=== PATIENT | female | born 1980 | race Caucasian/White ===

== ENCOUNTER 2016-11-04 19:06 | Emergency (ER) | payer MEDICAID ==
--- NOTE | 2016-11-04 19:25 | ER Document Report ---
ED General - General Stated Complaint: IVC WITH PAPERS Mode of Arrival: Ambulatory Information source: Patient Notes: 36-year-old female on Lamictal for bipolar disorder presents with complaints of depression over the past few days. Patient denies any suicidal homicidal ideations. Patient does note she has not been getting much sleep over the past few days TRAVEL OUTSIDE OF THE [place] IN LAST 30 DAYS: No - HPI Onset: Last week Onset/Duration: Persistent Quality of pain: No pain Severity: Mild Pain Level: Denies Associated symptoms: Other Exacerbated by: Denies Relieved by: Denies Similar symptoms previously: Yes Recently seen / treated by doctor: Yes - patient is seen at Dr. Otoole's office - Related Data Allergies/Adverse Reactions: aspirin [Aspirin] Allergy (Severe, Verified 08/11/13 20:06) Liver damage acetaminophen [From Tylenol] Allergy (Intermediate, Verified 08/11/13 20:06) Liver damage codeine [Codeine] Allergy (Intermediate, Verified 08/11/13 20:06) Rash, N&V fluoxetine HCl [From Prozac] Allergy (Verified 08/11/13 20:06) Past Medical History - Social History Smoking Status: Current Every Day Smoker Cigarette use (# per day): Yes Chew tobacco use (# tins/day): No Smoking Education Provided: No Family History: Reviewed & Not Pertinent - Past Medical History Cardiac Medical History: Reports: Hx Heart Murmur Pulmonary Medical History: Reports: Hx Asthma, Hx Bronchitis, Hx Pneumonia Neurological Medical History: Reports: Hx Migraine Endocrine Medical History: Reports: Hx Hypothyroidism Renal/ Medical History: Reports: Hx Kidney Stones GI Medical History: Musculoskeltal Medical History: Reports Hx Arthritis, Reports Hx Musculoskeletal Deformity, Reports Hx Musculoskeletal Trauma Psychiatric Medical History: Reports: Hx Anxiety, Hx Attention Deficit Hyperactivity Disorder, Hx Bipolar Disorder, Hx Depression Infectious Medical History: Past Surgical History: Reports: Hx Appendectomy, Hx Gynecologic Surgery - novasure ablation, Hx Hysterectomy, Hx Oral Surgery, Hx Tubal Ligation. Denies : Hx Pacemaker - Immunizations Immunizations up to date: Yes Hx Diphtheria, Pertussis, Tetanus Vaccination: Yes Review of Systems - Review of Systems Notes: REVIEW OF SYSTEMS: CONSTITUTIONAL : Denies fever, chills, or sweats. Denies recent illness. EENT: Denies eye, ear, throat, or mouth pain or symptoms. Denies nasal or sinus congestion or discharge. Denies throat, tongue, or mouth swelling or difficulty swallowing. CARDIOVASCULAR: Denies chest pain. Denies palpitations or racing or irregular heart beat. Denies ankle edema. RESPIRATORY: Denies cough, cold, or chest congestion. Denies shortness of breath, difficulty breathing, or wheezing. GASTROINTESTINAL: Denies abdominal pain or distention. Denies nausea, vomiting , or diarrhea. Denies blood in vomitus, stools, or per rectum. Denies black, tarry stools. Denies constipation. GENITOURINARY: Denies difficulty urinating, painful urination, burning, frequency, blood in urine, or discharge. FEMALE GENITOURINARY: Denies vaginal bleeding, heavy or abnormal periods, irregular periods. Denies vaginal discharge or odor. MUSCULOSKELETAL: Denies back or neck pain or stiffness. Denies joint pain or swelling. SKIN: Denies rash, lesions or sores. HEMATOLOGIC : Denies easy bruising or bleeding. LYMPHATIC: Denies swollen, enlarged glands. NEUROLOGICAL: Denies confusion or altered mental status. Denies passing out or loss of consciousness. Denies dizziness or lightheadedness. Denies headache. Denies weakness or paralysis or loss of use of either side. Denies problems with gait or speech. Denies sensory loss, numbness, or tingling. Denies seizures. PSYCHIATRIC: Admits to depression ALL OTHER SYSTEMS REVIEWED AND NEGATIVE. Dictation was performed using [employer] voice recognition software PHYSICAL EXAMINATION: GENERAL: Well-appearing, well-nourished and in no acute distress. HEAD: Atraumatic, normocephalic. EYES: Pupils equal round and reactive to light, extraocular movements intact, conjunctiva are normal. ENT: Nares patent, oropharynx clear without exudates. Moist mucous membranes. NECK: Normal range of motion, supple without lymphadenopathy LUNGS: Breath sounds clear to auscultation bilaterally and equal. No wheezes rales or rhonchi. HEART: Regular rate and rhythm without murmurs ABDOMEN: Soft, nontender, nondistended abdomen. No guarding, no rebound. No masses appreciated. Female : deferred Musculoskeletal: Normal range of motion, no pitting or edema. No cyanosis. NEUROLOGICAL: Cranial nerves grossly intact. Normal speech, normal gait. Normal sensory, motor exams PSYCH: Normal mood, normal affect. SKIN: Warm, Dry, normal turgor, no rashes or lesions noted. Course - Re-evaluation Re-evalutation: 11/04/16 20:07 Medically patient appears stable, lab work is pending. Otherwise she will require mental health evaluation Discharge - Discharge Clinical Impression: Depression Qualifiers: Depression Type: unspecified Qualified Code(s): F32.9 - Major depressive disorder, single episode, unspecified Bipolar affective disorder Qualifiers: Active/Remission status: currently active Current bipolar episode type: depressed Current episode severity: mild Qualified Code(s): F31.31 - Bipolar disorder, current episode depressed, mild Condition: Stable Disposition: PSYCH HOSP/UNIT
[2016-11-04 20:59] LABS: ABSOLUTE BASOPHILS # (AUTO) 0.1 10^3/uL (0.0-0.2); ABSOLUTE EOSINOPHILS # (AUTO) 0.3 10^3/uL (0.0-0.6); ABSOLUTE LYMPHOCYTES (AUTO) 2.5 10^3/uL (0.5-4.7); ABSOLUTE MONOCYTES (AUTO) 0.5 10^3/uL (0.1-1.4); ABSOLUTE NEUT (AUTO) 5.7 10^3/uL (1.7-8.2); BASOPHILS % (AUTO) 0.7 % (0-2); EOSINOPHILS % (AUTO) 3.2 % (0-6); HEMATOCRIT 38.8 % (36.0-47.0); HEMOGLOBIN 13.3 g/dL (12.0-15.5); HGB HCT DIFFERENCE 1.1; LYMPHOCYTES % (AUTO) 28.1 % (13-45); MEAN CORPUSCULAR HEMOGLOBIN 29.1 pg (27.0-33.4); MEAN CORPUSCULAR HGB CONC 34.2 g/dL (32.0-36.0); MEAN CORPUSCULAR VOLUME 85 fl (80-97); RED BLOOD COUNT 4.56 10^6/uL (3.72-5.28); RED CELL DISTRIBUTION WIDTH 13.6 % (11.5-14.0)
[2016-11-04 21:19] LABS: ALANINE AMINOTRANSFERASE 36 U/L (9-52); ALBUMIN 4.2 g/dL (3.5-5.0); ALKALINE PHOSPHATASE 75 U/L (38-126); ANION GAP 14 (5-19); ASPARTATE AMINO TRANSFERASE 24 U/L (14-36); BILIRUBIN,DIRECT 0.1 mg/dL (0.0-0.4); BILIRUBIN,TOTAL 0.6 mg/dL (0.2-1.3); BLOOD UREA NITROGEN 10 mg/dL (7-20); CALCIUM 9.8 mg/dL (8.4-10.2); CARBON DIOXIDE 25 mmol/L (22-30); CHLORIDE 106 mmol/L (98-107); CREATININE RESULT 0.84 mg/dL (0.52-1.25); GLUCOSE 79 mg/dL (75-110); POTASSIUM 4.2 mmol/L (3.6-5.0); SODIUM 145.3 mmol/L (137-145); TOTAL PROTEIN 6.8 g/dL (6.3-8.2)
[2016-11-04 21:21] LABS: ALCOHOL < 10 mg/dL (NONE DETECTED)
[2016-11-05 02:49] LABS: APPEARANCE,URINE CLOUDY; BILIRUBIN,URINE NEGATIVE (NEGATIVE); GLUCOSE, URINE NEGATIVE (NEGATIVE); KETONES,URINE NEGATIVE (NEGATIVE); LEUKOCYTE ESTERASE,URINE LARGE (NEGATIVE); NITRITE,URINE NEGATIVE (NEGATIVE); PROTEIN,URINE NEGATIVE (NEGATIVE); URINE SPECIFIC GRAVITY 1.009; UROBILINOGEN,URINE NEGATIVE mg/dL (<2.0)
[2016-11-05] MEDS ORDERED: LORAZEPAM 1 MG TABLET PO ONE (03:03)
[2016-11-05 03:35] LABS: URINE BARBITURATES SCREEN NEGATIVE; URINE METHADONE SCREEN NEGATIVE; URINE OPIATES LOW NEGATIVE; URINE PHENCYCLIDINE SCREEN NEGATIVE
--- NOTE | 2016-11-05 08:13 | EKG REPORT ---
SEVERITY:- NORMAL ECG - SINUS RHYTHM : Confirmed by: Jason Nguyen MD 05-Nov-2016 08:12:26
[2016-11-05 13:05] VITALS: BP 107/72
--- NOTE | 2016-11-05 13:13 | ER Document Report ---
Doctor's Note Notes: 11/05/16 13:13 Patient seen and evaluated at bedside, no complaints at present time, it professional's department in the emergency room to transport patient to tertiary care facility , patient in agreement with this and stable for transport
== END 2016-11-05 13:15 ==
LOC: ER 19:06
DX: F31.31 Bipolar disorder, current episode depressed, mild (principal); Z79.899 Other long term (current) drug therapy; J45.909 Unspecified asthma, uncomplicated; F17.210 Nicotine dependence, cigarettes, uncomplicated; Z88.6 Allergy status to analgesic agent; Z88.5 Allergy status to narcotic agent; Z88.8 Allergy status to other drugs, medicaments and biological substances
CPT/HCPCS: 36415; 80053; 80307; 81001; 82962; 84703; 85025; 93005; 93010; 99284

== ENCOUNTER → 2016-12-17 | Outpatient (CLI) | payer MEDICAID ==
--- NOTE | 2016-12-17 12:16 | RADIOLOGY REPORT (SQ) ---
EXAM DESCRIPTION: CHEST PA/LATERAL COMPLETED DATE/TIME: 12/17/2016 11:48 am REASON FOR STUDY: SHORTNESS OF BREATH COMPARISON: 04/28/2011 EXAM PARAMETERS: NUMBER OF VIEWS: two views TECHNIQUE: Digital Frontal and Lateral radiographic views of the chest acquired. RADIATION DOSE: NA LIMITATIONS: none FINDINGS: LUNGS AND PLEURA: No opacities, masses or pneumothorax. No pleural effusion. MEDIASTINUM AND HILAR STRUCTURES: No masses or contour abnormalities. HEART AND VASCULAR STRUCTURES: Heart normal size. No evidence for failure. BONES: No acute findings. HARDWARE: None in the chest. OTHER: No other significant finding. IMPRESSION: NO SIGNIFICANT RADIOGRAPHIC FINDING IN THE CHEST. TECHNICAL DOCUMENTATION: JOB ID: [id number] [employer]- All Rights Reserved
== END ==
LOC: OD 11:36
PROVIDERS: ATTEND Physician Assistant Medical
DX: R06.02 Shortness of breath (principal)
CPT/HCPCS: 71020

== ENCOUNTER 2016-12-19 19:56 | Emergency (ER) | payer MEDICAID ==
[2016-12-19 20:10] VITALS: BP 117/77
== END 2016-12-19 22:55 | disposition left against medical advice (07) ==
LOC: ER 19:56
DX: Z53.21 Procedure and treatment not carried out due to patient leaving prior to being seen by health care provider (principal)

== ENCOUNTER 2017-03-23 17:30 | Emergency (ER) | payer MEDICAID ==
--- NOTE | 2017-03-23 18:31 | ER Document Report ---
ED General - General Chief Complaint: Abdominal Pain Stated Complaint: VOMITING Time Seen by Provider: 03/23/17 18:13 Mode of Arrival: Ambulatory Information source: Patient Notes: This is a 36-year-old female with a history of bipolar affective disorder, obstructive sleep apnea, diabetes who presents to the emergency room with nausea , vomiting and constipation. Patient states that she has not had a bowel movement in 4 days. Patient attributes her constipation to a new medicine for diabetes (which she receivesbydureon) 2 mg weekly. Patient states that she had tried [id number] medications (mag citrate, Dulcolax) without any relief. Patient is concerned about pancreatitis because of the medications. TRAVEL OUTSIDE OF THE [place] IN LAST 30 DAYS: No - HPI Onset: Last week Onset/Duration: Gradual Quality of pain: Dull Severity: Mild Associated symptoms: denies: Chills, Fever, Shortness of breath Exacerbated by: Denies Relieved by: Denies Similar symptoms previously: Yes Recently seen / treated by doctor: Yes - Related Data Allergies/Adverse Reactions: aspirin [Aspirin] Allergy (Severe, Verified 08/11/13 20:06) Liver damage acetaminophen [From Tylenol] Allergy (Intermediate, Verified 08/11/13 20:06) Liver damage codeine [Codeine] Allergy (Intermediate, Verified 08/11/13 20:06) Rash, N&V fluoxetine HCl [From Prozac] Allergy (Verified 08/11/13 20:06) Past Medical History - General Information source: Patient - Social History Smoking Status: Never Smoker Cigarette use (# per day): No Chew tobacco use (# tins/day): No Frequency of alcohol use: None Drug Abuse: None Lives with: Family Family History: Reviewed & Not Pertinent Patient has suicidal ideation: No Patient has homicidal ideation: No - Past Medical History Cardiac Medical History: Reports: Hx Heart Murmur Pulmonary Medical History: Reports: Hx Asthma, Hx Bronchitis, Hx Pneumonia Neurological Medical History: Reports: Hx Migraine Endocrine Medical History: Reports: Hx Diabetes Mellitus Type 2, Hx Hypothyroidism Renal/ Medical History: Reports: Hx Kidney Stones. Denies: Hx Peritoneal Dialysis GI Medical History: Musculoskeltal Medical History: Reports Hx Arthritis, Reports Hx Musculoskeletal Deformity, Reports Hx Musculoskeletal Trauma Psychiatric Medical History: Reports: Hx Anxiety, Hx Attention Deficit Hyperactivity Disorder, Hx Bipolar Disorder, Hx Depression Infectious Medical History: Past Surgical History: Reports: Hx Appendectomy, Hx Gynecologic Surgery - novasure ablation, Hx Hysterectomy, Hx Oral Surgery, Hx Tubal Ligation. Denies : Hx Pacemaker - Immunizations Immunizations up to date: Yes Hx Diphtheria, Pertussis, Tetanus Vaccination: Yes Review of Systems - Review of Systems Constitutional: denies: Chills, Fever EENT: No symptoms reported Cardiovascular: No symptoms reported Respiratory: No symptoms reported Gastrointestinal: See HPI Genitourinary: No symptoms reported Female Genitourinary: No symptoms reported Musculoskeletal: No symptoms reported Skin: No symptoms reported Hematologic/Lymphatic: No symptoms reported Neurological/Psychological: No symptoms reported Physical Exam - Vital signs Vitals: Temp Pulse Resp BP Pulse Ox 98.3 F 86 20 120/76 99 03/23/17 17:42 03/23/17 17:42 03/23/17 17:42 03/23/17 17:42 03/23/17 17:42 Notes: Physical exam: GENERAL: 36-year-old female, alert and oriented 3, no acute distress. Patient is lying comfortably in stretcher on her phone. HEAD: Atraumatic, normocephalic. EYES: Pupils equal round and reactive to light, extraocular movements intact, sclera anicteric, conjunctiva are normal. ENT: TMs normal, nares patent, oropharynx clear without exudates. Moist mucous membranes. NECK: Normal range of motion, supple without obvious mass or JVD. LUNGS: Breath sounds clear to auscultation bilaterally and equal. No wheezes rales or rhonchi. HEART: Regular rate and rhythm without murmurs, rubs or gallops. ABDOMEN: Soft, normoactive bowel sounds. No tenderness to palpation. No guarding, no rebound. No masses appreciated. Patient adamantly refuses rectal exam. EXTREMITIES: Normal range of motion, no pitting or edema. No clubbing or cyanosis. NEUROLOGICAL: Cranial nerves II through XII grossly intact. Normal speech, moving all extremities. PSYCH: Normal mood, normal affect. SKIN: Warm, Dry, normal turgor, no rashes or lesions noted. Course - Vital Signs Vital signs: Temp Pulse Resp BP Pulse Ox 98.1 F 72 18 108/69 100 03/23/17 21:16 03/23/17 21:16 03/23/17 21:16 03/23/17 21:16 03/23/17 21:16 - Laboratory Result Diagrams: 03/23/17 18:41 03/23/17 18:41 Laboratory results interpreted by me: 03/23/17 18:41 Lipase 315.7 H - Diagnostic Test Radiology reviewed: Image reviewed, Reports reviewed - Obstructive series shows no acute air-fluid levels. Discharge - Discharge Clinical Impression: Constipation Condition: Stable Disposition: HOME, SELF-CARE Additional Instructions: Thank you for choosing [facility] for your care. The examination and treatment you have received in the Emergency Department today has been rendered on an emergency basis only and is not intended to be a substitute for complete medical care. You should contact your follow-up physician as it is important that he or she examine you for any new or remaining problems. If given a copy of any lab tests or radiology reports, please bring them with you when you see your physician. If your problem worsens or new symptoms appear and you are unable to arrange prompt follow-up care, return to the Emergency Department. Specific signs to look out for: Worsening abdominal pain, not tolerating fluids, persistent vomiting. Any other instructions: Follow-up with Dr. Reed (her sports official). Bring a copy of today's labs with you. You may want to have a repeat lipase (that is the pancreatic enzyme) in the next week or 2. You can take Zofran for nausea Prescriptions: Ondansetron HCl [Zofran 4 mg Tablet] 1 - 2 tab PO Q4H PRN #10 tablet PRN Reason: Referrals: AMANDA GRIFFIN MD [Primary Care Provider] - Follow up as needed
[2017-03-23 18:47] LABS: ABSOLUTE BASOPHILS # (AUTO) 0.1 10^3/uL (0.0-0.2); ABSOLUTE EOSINOPHILS # (AUTO) 0.3 10^3/uL (0.0-0.6); ABSOLUTE LYMPHOCYTES (AUTO) 3.1 10^3/uL (0.5-4.7); ABSOLUTE MONOCYTES (AUTO) 0.5 10^3/uL (0.1-1.4); ABSOLUTE NEUT (AUTO) 4.5 10^3/uL (1.7-8.2); BASOPHILS % (AUTO) 0.9 % (0-2); EOSINOPHILS % (AUTO) 3.4 % (0-6); HEMATOCRIT 36.6 % (36.0-47.0); HEMOGLOBIN 12.7 g/dL (12.0-15.5); HGB HCT DIFFERENCE 1.5; LYMPHOCYTES % (AUTO) 36.8 % (13-45); MEAN CORPUSCULAR HGB CONC 34.6 g/dL (32.0-36.0); MEAN CORPUSCULAR VOLUME 87 fl (80-97); MONOCYTES % (AUTO) 5.6 % (3-13); RED BLOOD COUNT 4.23 10^6/uL (3.72-5.28); RED CELL DISTRIBUTION WIDTH 13.6 % (11.5-14.0); SEGMENTED NEUTROPHILS % (AUTO) 53.3 % (42-78); WHITE BLOOD COUNT 8.5 10^3/uL (4.0-10.5)
--- NOTE | 2017-03-23 19:04 | RADIOLOGY REPORT (SQ) ---
EXAM DESCRIPTION: ACUTE ABDOMEN SERIES COMPLETED DATE/TIME: 03/23/2017 6:56 pm REASON FOR STUDY: n/v COMPARISON: None. NUMBER OF VIEWS: Three views. TECHNIQUE: Frontal chest, supine abdomen and upright abdomen radiographic images acquired. LIMITATIONS: None. FINDINGS: CHEST: Lungs clear of infiltrates. FREE AIR: None. No abnormal gas collections. BOWEL GAS PATTERN: Nonobstructive pattern. No dilated loops or air fluid levels. CALCIFICATIONS: No suspicious calcifications. HARDWARE: Tubal ligation clips. SOFT TISSUES: No gross mass or suggestion of organomegaly. BONES: No acute fracture. No worrisome bone lesions. OTHER: No other significant finding. IMPRESSION: NO RADIOGRAPHIC EVIDENCE FOR ACUTE ABDOMINAL DISEASE. TECHNICAL DOCUMENTATION: JOB ID: [id number] [employer]- All Rights Reserved
[2017-03-23 19:09] LABS: ALANINE AMINOTRANSFERASE 20 U/L (9-52); ALBUMIN 4.1 g/dL (3.5-5.0); ALKALINE PHOSPHATASE 63 U/L (38-126); ANION GAP 10 (5-19); ASPARTATE AMINO TRANSFERASE 22 U/L (14-36); BILIRUBIN,DIRECT 0.3 mg/dL (0.0-0.4); BILIRUBIN,TOTAL 0.4 mg/dL (0.2-1.3); BLOOD UREA NITROGEN 14 mg/dL (7-20); CALCIUM 9.7 mg/dL (8.4-10.2); CARBON DIOXIDE 25 mmol/L (22-30); CHLORIDE 107 mmol/L (98-107); CREATININE RESULT 0.81 mg/dL (0.52-1.25); GLUCOSE 78 mg/dL (75-110); LIPASE 315.7 U/L (23-300); POTASSIUM 4.3 mmol/L (3.6-5.0); SODIUM 141.7 mmol/L (137-145); TOTAL PROTEIN 6.7 g/dL (6.3-8.2)
[2017-03-23] MEDS ORDERED: ONDANSETRON ODT 4 MG TAB (6 TAB/DSPK) PO PRN (21:18)
[2017-03-23 21:39] VITALS: BP 108/69
== END 2017-03-23 21:22 | disposition home or self-care (01) ==
LOC: ER 17:30
DX: K59.00 Constipation, unspecified (principal); R11.2 Nausea with vomiting, unspecified; E11.9 Type 2 diabetes mellitus without complications; J45.909 Unspecified asthma, uncomplicated; Z79.899 Other long term (current) drug therapy; Z88.6 Allergy status to analgesic agent; Z88.5 Allergy status to narcotic agent; Z88.8 Allergy status to other drugs, medicaments and biological substances
CPT/HCPCS: 36415; 74022; 80053; 83690; 85025; 99284

== ENCOUNTER → 2017-03-25 | Outpatient (CLI) | payer MEDICAID ==
[2017-03-25 17:49] LABS: ABSOLUTE BASOPHILS # (AUTO) 0.1 10^3/uL (0.0-0.2); ABSOLUTE EOSINOPHILS # (AUTO) 0.3 10^3/uL (0.0-0.6); ABSOLUTE LYMPHOCYTES (AUTO) 2.7 10^3/uL (0.5-4.7); ABSOLUTE MONOCYTES (AUTO) 0.5 10^3/uL (0.1-1.4); BASOPHILS % (AUTO) 0.8 % (0-2); EOSINOPHILS % (AUTO) 3.6 % (0-6); HEMATOCRIT 36.7 % (36.0-47.0); HEMOGLOBIN 12.6 g/dL (12.0-15.5); HGB HCT DIFFERENCE 1.1; LYMPHOCYTES % (AUTO) 31.7 % (13-45); MEAN CORPUSCULAR HGB CONC 34.4 g/dL (32.0-36.0); MEAN CORPUSCULAR VOLUME 87 fl (80-97); MONOCYTES % (AUTO) 6.1 % (3-13); RED BLOOD COUNT 4.22 10^6/uL (3.72-5.28); RED CELL DISTRIBUTION WIDTH 13.5 % (11.5-14.0); SEGMENTED NEUTROPHILS % (AUTO) 57.8 % (42-78); WHITE BLOOD COUNT 8.7 10^3/uL (4.0-10.5)
[2017-03-25 18:17] LABS: ALANINE AMINOTRANSFERASE 28 U/L (9-52); ALBUMIN 4.2 g/dL (3.5-5.0); ALKALINE PHOSPHATASE 66 U/L (38-126); AMYLASE 37 U/L (30-110); ANION GAP 10 (5-19); ASPARTATE AMINO TRANSFERASE 20 U/L (14-36); BILIRUBIN,DIRECT 0.3 mg/dL (0.0-0.4); BILIRUBIN,TOTAL 0.5 mg/dL (0.2-1.3); BLOOD UREA NITROGEN 14 mg/dL (7-20); C-REACTIVE PROTEIN 9.3 mg/L (<10.0); CALCIUM 9.7 mg/dL (8.4-10.2); CARBON DIOXIDE 24 mmol/L (22-30); CHLORIDE 106 mmol/L (98-107); CREATININE RESULT 0.85 mg/dL (0.52-1.25); GLUCOSE 76 mg/dL (75-110); LIPASE 251.8 U/L (23-300); POTASSIUM 4.4 mmol/L (3.6-5.0); SODIUM 139.9 mmol/L (137-145); TOTAL PROTEIN 6.9 g/dL (6.3-8.2)
[2017-03-25 18:30] LABS: ERYTHROCYTE SEDIMENTATION RATE 25 mm/hr (0-20)
== END ==
LOC: OD 16:44
PROVIDERS: ATTEND Family Medicine
DX: R74.8 Abnormal levels of other serum enzymes (principal)
CPT/HCPCS: 36415; 80053; 82150; 82977; 83690; 85025; 85652; 86140

== ENCOUNTER 2017-06-30 16:56 | Emergency (ER) | payer MEDICAID ==
[2017-06-30 17:33] LABS: ABSOLUTE BASOPHILS # (AUTO) 0.1 10^3/uL (0.0-0.2); ABSOLUTE EOSINOPHILS # (AUTO) 0.2 10^3/uL (0.0-0.6); ABSOLUTE LYMPHOCYTES (AUTO) 2.5 10^3/uL (0.5-4.7); ABSOLUTE MONOCYTES (AUTO) 0.6 10^3/uL (0.1-1.4); ABSOLUTE NEUT (AUTO) 5.3 10^3/uL (1.7-8.2); EOSINOPHILS % (AUTO) 2.5 % (0-6); HEMATOCRIT 35.6 % (36.0-47.0); LYMPHOCYTES % (AUTO) 28.6 % (13-45); MEAN CORPUSCULAR HEMOGLOBIN 29.6 pg (27.0-33.4); MEAN CORPUSCULAR HGB CONC 33.6 g/dL (32.0-36.0); MEAN CORPUSCULAR VOLUME 88 fl (80-97); MONOCYTES % (AUTO) 7.1 % (3-13); PLATELET COUNT 270 10^3/uL (150-450); RED BLOOD COUNT 4.04 10^6/uL (3.72-5.28); RED CELL DISTRIBUTION WIDTH 13.5 % (11.5-14.0); SEGMENTED NEUTROPHILS % (AUTO) 60.8 % (42-78); TOTAL CELLS COUNTED % (AUTO) 100 %; WHITE BLOOD COUNT 8.8 10^3/uL (4.0-10.5)
--- NOTE | 2017-06-30 17:33 | ER Document Report ---
ED Psych Disorder / Suicide - General Mode of Arrival: Medic Information source: Patient, Emergency Med Personnel TRAVEL OUTSIDE OF THE [place] IN LAST 30 DAYS: No - HPI Patient complains to provider of: Overdose Onset: Other - OVER PAST 15-16 HOURS Quality of pain: No pain Suicide Risk Factors: Lack of social support, Prior suicide attempt, Other mental health dx. Situational problems related to: Spouse Suicide Attempt Method: Overdose Overdose of: Benzodiazepine - XANAX, 1 mg x30, Salicylate - ASA 81 mg x 20, Other - OTC COUGH MED (GUIAFENESIN/DEXTROMETHOPHAN/PHENYLEPHRINE) Normal mood: No - DEPRESSED Associated symptoms: Depressed, Other - SHE'S CONVINCED SHE'S , DESPITE PRIOR BTL AND ENDOMETRIAL ABLATION Similar symptoms previously: Yes - NOT RECENT Recently seen / treated by doctor: No <CRUZITO AHMADI - Last Filed: 06/30/17 22:25> <SERGIO MORILLO - Last Filed: 06/30/17 23:58> <KENROY POOL - Last Filed: 07/01/17 13:00> <LYNETTE WASSERMAN - Last Filed: 07/01/17 17:17> - General Chief Complaint: Overdose Stated Complaint: POSSIBLE OVERDOSE Time Seen by Provider: 06/30/17 17:32 - Related Data Allergies/Adverse Reactions: aspirin [Aspirin] Allergy (Severe, Verified 08/11/13 20:06) Liver damage acetaminophen [From Tylenol] Allergy (Intermediate, Verified 08/11/13 20:06) Liver damage codeine [Codeine] Allergy (Intermediate, Verified 08/11/13 20:06) Rash, N&V fluoxetine HCl [From Prozac] Allergy (Verified 08/11/13 20:06) Past Medical History - General Information source: Patient - Social History Smoking Status: Unknown if Ever Smoked Frequency of alcohol use: Occasional Drug Abuse: None Lives with: Alone Family History: Reviewed & Not Pertinent Patient has suicidal ideation: Yes Patient has homicidal ideation: No - Past Medical History Cardiac Medical History: Reports: Hx Heart Murmur Pulmonary Medical History: Reports: Hx Asthma, Hx Bronchitis, Hx Pneumonia Neurological Medical History: Reports: Hx Migraine Endocrine Medical History: Reports: Hx Diabetes Mellitus Type 2, Hx Hypothyroidism Renal/ Medical History: Reports: Hx Kidney Stones. Denies: Hx Peritoneal Dialysis GI Medical History: Musculoskeltal Medical History: Reports Hx Arthritis, Reports Hx Musculoskeletal Deformity, Reports Hx Musculoskeletal Trauma Psychiatric Medical History: Reports: Hx Anxiety, Hx Attention Deficit Hyperactivity Disorder, Hx Bipolar Disorder, Hx Depression Infectious Medical History: Past Surgical History: Reports: Hx Appendectomy, Hx Gynecologic Surgery - novasure ablation, Hx Hysterectomy, Hx Oral Surgery, Hx Tubal Ligation. Denies : Hx Pacemaker - Immunizations Immunizations up to date: Yes Hx Diphtheria, Pertussis, Tetanus Vaccination: Yes <CRUZITO AHMADI - Last Filed: 06/30/17 22:25> Review of Systems - Review of Systems Constitutional: No symptoms reported EENT: No symptoms reported Cardiovascular: No symptoms reported Respiratory: No symptoms reported Gastrointestinal: No symptoms reported Genitourinary: No symptoms reported Female Genitourinary: See HPI Musculoskeletal: No symptoms reported Skin: No symptoms reported Neurological/Psychological: No symptoms reported <CRUZITO AHMADI - Last Filed: 06/30/17 22:25> Physical Exam - Vital signs Interpretation: Normal - General General appearance: Appears well, Lethargic - EASILY AROUSABLE W/ VERBAL STIMULUS. In distress: None - HEENT Head: Normocephalic Eyes: Normal Conjunctiva: Normal Ears: Normal Nasal: Normal Mouth/Lips: Normal Mucous membranes: Normal Pharynx: Normal Neck: Normal - Respiratory Respiratory status: No respiratory distress Breath sounds: Normal - Cardiovascular Rhythm: Regular Heart sounds: Normal auscultation Murmur: No - Abdominal Inspection: Obese Bowel sounds: Normal - Extremities General upper extremity: Normal inspection General lower extremity: Normal inspection. No: Tender, Edema - Neurological Neuro grossly intact: Yes Cognition: Normal Orientation: AAOx4 - Psychological Associated symptoms: Depressed - Skin Skin Temperature: Warm Skin Moisture: Dry Skin Color: Normal Skin Turgor: Elastic <CRUZITO AHMADI - Last Filed: 06/30/17 22:25> - Vital signs Vitals: Temp Pulse Resp BP Pulse Ox 98.0 F 109 H 22 H 120/79 97 06/30/17 16:57 06/30/17 16:57 06/30/17 16:57 06/30/17 16:57 06/30/17 16:57 Course - Laboratory Result Diagrams: 06/30/17 17:10 06/30/17 17:10 <CRUZITO AHMADI - Last Filed: 06/30/17 22:25> - Laboratory Result Diagrams: 06/30/17 17:10 06/30/17 17:10 <SERGIO MORILLO - Last Filed: 06/30/17 23:58> - Laboratory Result Diagrams: 06/30/17 17:10 06/30/17 17:10 <KENROY POOL - Last Filed: 07/01/17 13:00> - Laboratory Result Diagrams: 06/30/17 17:10 06/30/17 17:10 <LYNETTE WASSERMAN - Last Filed: 07/01/17 17:17> - Re-evaluation Re-evalutation: 06/30/17 23:58 Nurse just informed that the patient does not want stay in bed and is trying to get out of bed and walk around. I went and evaluate the patient. Due to the Xanax overdose she is wobbling around it unsteady on her feet. I do not think given her anything sedated would be a good idea being that she is already still somewhat sedated from Xanax. I will order restraints so that she stays in bed. (SERGIO MORILLO) - Vital Signs Vital signs: Temp Pulse Resp BP Pulse Ox 98.3 F 94 18 107/64 98 07/01/17 12:24 07/01/17 12:24 07/01/17 12:24 07/01/17 12:24 07/01/17 12:24 - Laboratory Laboratory results interpreted by me: 06/30/17 06/30/17 06/30/17 17:10 17:10 17:10 Hct 35.6 L ABG pO2 Carbon Dioxide 21 L BUN 24 H Glucose 176 H POC Glucose Total Protein 5.7 L Urine Blood SMALL H Ur Leukocyte Esterase TRACE H Salicylates < 1.0 L Acetaminophen < 10 L 07/01/17 07/01/17 11:25 12:15 Hct ABG pO2 74.5 L Carbon Dioxide BUN Glucose POC Glucose 140 H Total Protein Urine Blood Ur Leukocyte Esterase Salicylates Acetaminophen Discharge <CRUZITO AHMADI - Last Filed: 06/30/17 22:25> <SERGIO MORILLO - Last Filed: 06/30/17 23:58> <KENROY POOL - Last Filed: 07/01/17 13:00> <LYNETTE WASSERMAN - Last Filed: 07/01/17 17:17> - Discharge Clinical Impression: Overdose of benzodiazepine Qualifiers: Encounter type: initial encounter Injury intent: intentional self-harm Qualified Code(s): T42.4X2A - Poisoning by benzodiazepines, intentional self- harm, initial encounter Depressed Qualifiers: Depression Type: unspecified Qualified Code(s): F32.9 - Major depressive disorder, single episode, unspecified Suicidal behavior Qualifiers: Attempted self-injury: with attempted self-injury Qualified Code(s): T14.91XA - Suicide attempt, initial encounter Condition: Stable Disposition: HOME, SELF-CARE Additional Instructions: Initially we discussed possibly prescribing you different medications, however after further evaluation and discussion with the mental health team here in the emergency department we feel it is best if you continue to follow-up with your act team and [facility] for further medications and medication management. No medications will be prescribed for her today from the emergency department. DEPRESSION: Your evaluation reveals that you have mental depression. While symptoms may be vague, they often include disturbance of sleep, fatigue, loss of appetite , and general loss of interest in life. While depression may be a side effect of drugs, or a reaction to a major change in your life, many cases have no known cause. If depression is acute, and related to a major loss in your life, you can expect it to clear completely with time. If you have been depressed a long time , are prone to repeated bouts of depression or low mood, or have been thinking of suicide, get help. Depression can be treated with anti-depressant medication and counselling. Long-term depression will often take a few weeks to clear, even with appropriate medication. Follow-up care is important. SUICIDAL IDEATION: Suicidal ideation is a common medical term for thoughts about suicide, which may be as detailed as a formulated plan, without the suicidal act itself. Although most people who undergo suicidal ideation do not commit suicide, some go on to make suicide attempts. The range of suicidal ideation varies greatly from fleeting to detailed planning, role playing, and unsuccessful attempts. While thoughts about suicide are common, most people do not carry out serious actions to commit suicide. Based upon your evaluation and discussion with you, we do not believe you are currently at risk to act upon your thoughts of suicide. You have agreed to return to the Emergency Department, at any time , if you feel inclined to act upon your suicidal thoughts. Overdose You have taken more medication than you should have. After your evaluation and care, it is felt that your overdose is not likely to be harmful or of any significant consequences to you and you are being discharged. In the future, you should be careful not to take more medications than what is prescribed for you. Although your overdose does not seem to be of any danger to you at this time, if you develop any unusual or unexpected symptoms after your discharge, you should return to the Emergency Department immediately for re-evaluation. FOLLOW-UP CARE: You have been given resources for outpatient services and medication management as well as a referral for [facility]. It is recommended you follow up with a provider for care and management of your mental health and medication management needs. You have also been given contact information for [facility] to utilize as needed. If you experience worsening or a significant change in your symptoms, notify the physician immediately or return to the Emergency Department at any time for re-evaluation. Referrals: AMANDA GRIFFIN MD [Primary Care Provider] - Follow up as needed [facility] [Outside] - Follow up as needed [facility] [Outside] - Follow up as needed
[2017-06-30 17:47] LABS: APPEARANCE,URINE CLOUDY; BILIRUBIN,URINE NEGATIVE (NEGATIVE); COLOR,URINE YELLOW; GLUCOSE, URINE NEGATIVE (NEGATIVE); KETONES,URINE NEGATIVE (NEGATIVE); LEUKOCYTE ESTERASE,URINE TRACE (NEGATIVE); NITRITE,URINE NEGATIVE (NEGATIVE); PROTEIN,URINE NEGATIVE (NEGATIVE); UROBILINOGEN,URINE NEGATIVE mg/dL (<2.0)
[2017-06-30 17:55] LABS: ALANINE AMINOTRANSFERASE 25 U/L (9-52); ALBUMIN 3.5 g/dL (3.5-5.0); ALKALINE PHOSPHATASE 66 U/L (38-126); ANION GAP 12 (5-19); ASPARTATE AMINO TRANSFERASE 18 U/L (14-36); BILIRUBIN,DIRECT 0.2 mg/dL (0.0-0.4); BILIRUBIN,TOTAL 0.2 mg/dL (0.2-1.3); BLOOD UREA NITROGEN 24 mg/dL (7-20); CALCIUM 9.2 mg/dL (8.4-10.2); CARBON DIOXIDE 21 mmol/L (22-30); CHLORIDE 107 mmol/L (98-107); GLUCOSE 176 mg/dL (75-110); POTASSIUM 4.3 mmol/L (3.6-5.0); SODIUM 139.8 mmol/L (137-145); TOTAL PROTEIN 5.7 g/dL (6.3-8.2)
[2017-06-30 17:56] LABS: ACETAMINOPHEN < 10 ug/mL (10-30); ALCOHOL < 10 mg/dL (NONE DETECTED); SALICYLATE < 1.0 mg/dL (2.0-20.0)
[2017-06-30 18:02] LABS: URINE AMPHETAMINES SCREEN NEGATIVE; URINE BARBITURATES SCREEN NEGATIVE; URINE BENZODIAZEPINES SCREEN UNCONFIRMED POSITIVE; URINE COCAINE SCREEN NEGATIVE; URINE MARIJUANA (THC) SCREEN NEGATIVE; URINE METHADONE SCREEN NEGATIVE; URINE PHENCYCLIDINE SCREEN NEGATIVE
--- NOTE | 2017-06-30 20:30 | EKG REPORT ---
SEVERITY:- OTHERWISE NORMAL ECG - SINUS TACHYCARDIA : Confirmed by: Marli Pemberton MD 30-Jun-2017 20:29:38
[2017-06-30] MEDS ORDERED: NORMAL SALINE 1000 ML 1,000 ML IV ONE (21:25)
--- NOTE | 2017-07-01 11:50 | ER Document Report ---
Doctor's Note Notes: 07/01/17 11:49 Patient not feeling suicidal or homicidal, admits that when she took the pills last night she was feeling suicidal and now no longer wants to . States that she would like to go home however on examination patient is quite somnolent , has difficulty opening her eyes, is able to talk to me and is oriented to person place and time however when she sits up she falls asleep again almost immediately and falls back in the bed. Patient is quite unsteady on her feet when trying to walk due to not opening her eyes. I would like to check a blood sugar and an ABG and let her sleep a little while longer. 07/01/17 17:13 ABG does not show any retention of CO2 or acidosis. Pt is allowed to sleep for a few more hours and then re-evaluated. Patient was sleeping, awakens easily, is able to walk, no unsteadiness or ataxia. Neurologically completely intact. Denies suicidal or homicidal ideation. Presently patient is both medically and psychiatrically cleared. Will be discharged home.
[2017-07-01 12:23] LABS: ARTERIAL BLOOD BASE EXCESS -1.1 mmol/L; ARTERIAL BLOOD FIO2 ROOM AIR; ARTERIAL BLOOD H2CO3 1.14 mmol/L (1.05-1.35); ARTERIAL BLOOD HCO3 23.3 mmol/L (20-26); ARTERIAL BLOOD O2 SATURATION 95.1 % (94-98); ARTERIAL BLOOD PCO2 37.9 mmHg (35-45); ARTERIAL BLOOD PH 7.41 (7.35-7.45); ARTERIAL BLOOD PO2 74.5 mmHg (80-100); ARTERIAL BLOOD TOTAL CO2 24.4 mmol/L (21-25)
[2017-07-01 12:25] VITALS: BP 107/64
--- NOTE | 2017-07-01 21:11 | PSYCHOLOGICAL NOTE ---
Psych Note - Psych Note Psych Note: Reason for Consult: Attempted Overdose Consents given: Maikol Medina, Patient is a 37 year-old woman who presented to the Emergency Department via EMS. Patient reported she took 15 Xanax to overdose. Patient stated she was having a horrible Lam[place]. She reported having an argument with her of 10 years. Patient stated she was also arguing with other family members but was unable to explain what the arguments included. Patient indicated the arguing had just started. Patient reported, I was frustrated. Patient stated she wants a baby. Provider enquired about medical information in patient s chart stating she had a tubal ligation. She stated she wasn't physically able to have a baby, but she wanted to adopt a baby. Patient stated part of the argument with her was about having a baby. She stated he wanted a baby too but was unclear how having a child was part of the argument. Patient stated she had two children previously but had to give them up for adoption because when she had them she was homeless and had no way to care for them. Patient stated she didn't want to disappoint her . Patient was unable to provide clarification around how she was going to disappoint her . Patient stated she has more than 20 inpatient hospitalizations [place]. She reported having multiple previous suicide attempts. She stated her first attempt was cutting her wrist after she lost her kids. Patient stated she goes to [facility] for treatment and medication management. She reported [facility] prescribes her Invega and Xanax. She reported the Invega makes me worse and increases her mood swings and irritability. Patient denied current suicidal ideation, intent or plan. Patient stated she "wasn't trying to kill herself." She stated she impulsively took the medication in response to frustration. Patient was lethargic and had difficulty engaging with this provider. Patient denied auditory/visual hallucinations. No delusions were noted. Thought processes were linear, rational and organized. Conversational speech was slurred , and rate, tone and prosody were ponderous. Intellectual abilities were estimated within average range. Insight, judgment and impulse control were poor. Patient denied current suicidal/homicidal ideation, intent or plan. [phone] (F31.62) Bipolar Disorder, Moderate Impression/Plan: Recommend rescind IVC. Patient does not meet [place] G.S IVC criteria. Patient denied suicidal ideation, intent or plan. Patient was recommended to follow through with scheduled appointments with established provider for ongoing care and management. Consulted with Dr. Hinds in the treatment and care of this patient. ED physician in agreement with recommendations and disposition.
== END 2017-07-01 19:00 | disposition home or self-care (01) ==
LOC: ER 16:56
DX: T42.4X2A Poisoning by benzodiazepines, intentional self-harm, initial encounter (principal); T14.91XA Suicide attempt, initial encounter; F32.9 Major depressive disorder, single episode, unspecified
CPT/HCPCS: 36415; 80053; 80307; 81001; 82803; 82962; 84703; 85025; 93005; 93010; 94660; 99285

== ENCOUNTER → 2018-04-21 | Outpatient (CLI) | payer MEDICAID ==
--- NOTE | 2018-04-21 09:15 | RADIOLOGY REPORT (SQ) ---
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 TECHNIQUE: Multiplanar imaging includes non-contrasted T1, T2, FLAIR, diffusion with ADC map and pos t gadolinium contrast T1 sequences. Thin sections through the pituitary fossa pre and post contrast. Images stored on PACS. CONTRAST TYPE AND DOSE: 20 mL Dotarem. RENAL FUNCTION: GFR > 60. LIMITATIONS: None. FINDINGS: ANATOMY: No anomalies. Normal vascular flow voids. CSF SPACES: Normal in size and contour. No hemorrhage. PITUITARY FOSSA: No masses. No asymmetry. Infundibulum midline. CEREBRUM: Sulci and gyri normal in size and contour. Normal white matter signal on FLAIR imaging. No evidence of hemorrhage, mass, or extraaxial fluid collection. No abnormal enhancement post contrast. POSTERIOR FOSSA: No signal alteration. No hemorrhage. No edema, masses, or mass effect. Internal aud itory canals, cerebello-pontine angles, mastoids normal. No enhancing lesions. ORBITS: No masses. Globes normal. PARANASAL SINUSES: No fluid levels. Mucosa normal. OTHER: No other significant finding. IMPRESSION: NORMAL MRI OF THE BRAIN AND PITUITARY FOSSA WITHOUT AND WITH INTRAVENOUS GADOLINIUM CONT RAST. TECHNICAL DOCUMENTATION: JOB ID: [id number] [employer]- All Rights Reserved Reading location - IP/workstation name: [facility]-[email or web address]
== END ==
LOC: RAD 06:57
PROVIDERS: ATTEND Family Medicine
DX: E22.9 Hyperfunction of pituitary gland, unspecified (principal)
CPT/HCPCS: 82565; 70553; A9576

== ENCOUNTER 2018-05-12 19:22 | Emergency (ER) | payer MEDICAID ==
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
[2018-05-12 19:54] LABS: ABSOLUTE BASOPHILS # (AUTO) 0.1 10^3/uL (0.0-0.2); ABSOLUTE EOSINOPHILS # (AUTO) 0.2 10^3/uL (0.0-0.6); ABSOLUTE LYMPHOCYTES (AUTO) 2.5 10^3/uL (0.5-4.7); ABSOLUTE MONOCYTES (AUTO) 0.6 10^3/uL (0.1-1.4); ABSOLUTE NEUT (AUTO) 4.2 10^3/uL (1.7-8.2); BASOPHILS % (AUTO) 0.9 % (0-2); EOSINOPHILS % (AUTO) 2.8 % (0-6); HEMATOCRIT 37.9 % (36.0-47.0); HEMOGLOBIN 12.9 g/dL (12.0-15.5); MEAN CORPUSCULAR HEMOGLOBIN 29.1 pg (27.0-33.4); MEAN CORPUSCULAR HGB CONC 34.1 g/dL (32.0-36.0); MEAN CORPUSCULAR VOLUME 86 fl (80-97); MONOCYTES % (AUTO) 8.2 % (3-13); PLATELET COUNT 274 10^3/uL (150-450); RED BLOOD COUNT 4.43 10^6/uL (3.72-5.28); RED CELL DISTRIBUTION WIDTH 13.9 % (11.5-14.0); SEGMENTED NEUTROPHILS % (AUTO) 55.1 % (42-78); TOTAL CELLS COUNTED % (AUTO) 100 %; WHITE BLOOD COUNT 7.6 10^3/uL (4.0-10.5)
[2018-05-12 20:15] LABS: ALANINE AMINOTRANSFERASE 74 U/L (9-52); ALBUMIN 4.2 g/dL (3.5-5.0); ALKALINE PHOSPHATASE 70 U/L (38-126); ANION GAP 17 (5-19); ASPARTATE AMINO TRANSFERASE 59 U/L (14-36); BILIRUBIN,DIRECT 0.1 mg/dL (0.0-0.4); BILIRUBIN,TOTAL 0.5 mg/dL (0.2-1.3); BLOOD UREA NITROGEN 18 mg/dL (7-20); CALCIUM 10.1 mg/dL (8.4-10.2); CARBON DIOXIDE 21 mmol/L (22-30); CHLORIDE 105 mmol/L (98-107); GLUCOSE 122 mg/dL (75-110); POTASSIUM 4.1 mmol/L (3.6-5.0); SODIUM 142.8 mmol/L (137-145)
[2018-05-12 20:16] LABS: ACETAMINOPHEN < 10 ug/mL (10-30); ALCOHOL < 10 mg/dL (NONE DETECTED)
[2018-05-12 21:33] LABS: APPEARANCE,URINE CLOUDY; BILIRUBIN,URINE NEGATIVE (NEGATIVE); COLOR,URINE YELLOW; GLUCOSE, URINE NEGATIVE (NEGATIVE); KETONES,URINE NEGATIVE (NEGATIVE); LEUKOCYTE ESTERASE,URINE TRACE (NEGATIVE); NITRITE,URINE NEGATIVE (NEGATIVE); PROTEIN,URINE NEGATIVE (NEGATIVE); URINE SPECIFIC GRAVITY 1.024; UROBILINOGEN,URINE NEGATIVE mg/dL (<2.0)
[2018-05-12 21:46] LABS: URINE AMPHETAMINES SCREEN NEGATIVE; URINE BARBITURATES SCREEN NEGATIVE; URINE BENZODIAZEPINES SCREEN UNCONFIRMED POSITIVE; URINE COCAINE SCREEN NEGATIVE; URINE MARIJUANA (THC) SCREEN NEGATIVE; URINE METHADONE SCREEN NEGATIVE; URINE PHENCYCLIDINE SCREEN NEGATIVE
[2018-05-12] MEDS ORDERED: NORMAL SALINE 1000 ML 1,000 ML IV ONE (22:18)
--- NOTE | 2018-05-13 07:34 | EKG REPORT ---
SEVERITY:- NORMAL ECG - SINUS RHYTHM : Confirmed by: Jason Nguyen MD 13-May-2018 07:33:08
[2018-05-13 11:23] LABS: FREE T4 (FREE THYROXINE) 1.47 ng/dL (0.78-2.19)
[2018-05-13 11:37] LABS: THYROID STIMULATING HORMONE 0.02 uIU/mL (0.47-4.68)
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
[2018-05-13] MEDS ORDERED: BUSPIRONE HCL 10 MG TABLET PO ONE (12:06)
--- NOTE | 2018-05-13 12:08 | ER Document Report ---
Doctor's Note Notes: 05/13/18 12:41 Patient was seen and evaluated. No acute distress today. Definitely has some bipolar tendencies going on. Seems to be overly obsessed with her other health problems. Have added a TSH and free T4. We will start her on Topamax, Effexor and BuSpar. Mental health has seen. Will follow the recommendations. Discharge - Discharge Clinical Impression: Suicidal ideation Drug ingestion Qualifiers: Encounter type: initial encounter Injury intent: intentional self-harm Qualified Code(s): T50.902A - Poisoning by unspecified drugs, medicaments and biological substances, intentional self-harm, initial encounter Condition: Stable Disposition: HOME, SELF-CARE Additional Instructions: You have been evaluated by both medical and behavioral health teams have been deemed appropriate for discharge. You are recommended to follow-up with your outpatient mental health provider with [facility] act team. You are highly encourage to consider starting her medications again to better control your outbreak of symptoms. You have been provided prescriptions for Topamax 50 mg daily for 7 days then please talk to your outpatient provider about increasing to 100 mg daily, Effexor 37.5 mg daily, and BuSpar 5 mg every morning and 10 mg nightly; Please take as directed. DEPRESSION: Your evaluation reveals that you have mental depression. While symptoms may be vague, they often include disturbance of sleep, fatigue, loss of appetite , and general loss of interest in life. While depression may be a side effect of drugs, or a reaction to a major change in your life, many cases have no known cause. If depression is acute, and related to a major loss in your life, you can expect it to clear completely with time. If you have been depressed a long time , are prone to repeated bouts of depression or low mood, or have been thinking of suicide, get help. Depression can be treated with anti-depressant medication and counselling. Long-term depression will often take a few weeks to clear, even with appropriate medication. Follow-up care is important. SUICIDAL IDEATION: Suicidal ideation is a common medical term for thoughts about suicide, which may be as detailed as a formulated plan, without the suicidal act itself. Although most people who undergo suicidal ideation do not commit suicide, some go on to make suicide attempts. The range of suicidal ideation varies greatly from fleeting to detailed planning, role playing, and unsuccessful attempts. While thoughts about suicide are common, most people do not carry out serious actions to commit suicide. Based upon your evaluation and discussion with you, we do not believe you are currently at risk to act upon your thoughts of suicide. You have agreed to return to the Emergency Department, at any time , if you feel inclined to act upon your suicidal thoughts. FOLLOW-UP CARE: If you experience worsening or a significant change in your symptoms, notify the physician immediately or return to the Emergency Department at any time for re-evaluation. Prescriptions: Buspirone HCl [Buspar 5 mg Tablet] 1 tab PO DAILY #21 tab Topiramate [Topamax 100 Mg Tablet] 100 mg PO DAILY 7 Days #7 tablet Venlafaxine HCl ER [Effexor Xr 37.5 mg Cap.sr] 37.5 mg PO DAILY 7 Days #7 cap.[id number] Referrals: [facility] [Outside] - Follow up as needed [facility] [Outside] - Follow up as needed AMANDA GRIFFIN MD [Primary Care Provider] - Follow up as needed
[2018-05-13] MEDS ORDERED: TOPIRAMATE 25 MG TABLET PO SCH (12:15)
[2018-05-13] MEDS ORDERED: VENLAFAXINE HCL 37.5 MG CAP.SR.24H PO SCH (12:15)
[2018-05-13 14:28] VITALS: BP 114/64
== END 2018-05-13 14:28 | disposition home or self-care (01) ==
LOC: ER 19:22
DX: T50.902A Poisoning by unspecified drugs, medicaments and biological substances, intentional self-harm, initial encounter (principal); R74.0 Nonspecific elevation of levels of transaminase and lactic acid dehydrogenase [LDH]; E11.9 Type 2 diabetes mellitus without complications; J45.909 Unspecified asthma, uncomplicated; Z63.0 Problems in relationship with spouse or partner; Z62.820 Parent-biological child conflict; Z88.6 Allergy status to analgesic agent; Z88.5 Allergy status to narcotic agent; Z88.8 Allergy status to other drugs, medicaments and biological substances
CPT/HCPCS: 93005; 99291; 96360; 36415; 84439; 80307 ×4; 84443; 85025; 80053; 81001; 93010; J3490 ×3; J7030

== ENCOUNTER 2018-05-18 10:01 | Emergency (ER) | payer MEDICAID ==
--- NOTE | 2018-05-18 10:23 | ER Document Report ---
ED General - General Chief Complaint: Psych Problem Stated Complaint: PSYCH EVAL Time Seen by Provider: 05/18/18 10:06 TRAVEL OUTSIDE OF THE [place] IN LAST 30 DAYS: No - HPI Notes: Patient is a 38-year-old female with a history of borderline personality who presents to the ED for psych evaluation as she was running up and down the hallway at the [employer] karen Bautista loves her while being naked. Patient states that she feels "great." She has no SI/HI. Patient does not believe that she needs to be on medications at this time, and has not filled them from her visit 5 days ago. Patient is well-known to our psychology team here. She has been eating and drinking without any difficulties, but states that she has not been eating that much. She is urinating normally and having normal bowel movements. She has no other concerns or complaints. She has not taken any medicines or yfum-[id number]-zpnduum medicines since her last visit. She has no SI/ HI. She does not have any visual hallucinations. Denies any headache, fever, neck pain, URI, sore throat, chest pain, palpitations, syncope, cough, shortness of breath, wheeze, dyspnea, abdominal pain, nausea/vomiting/diarrhea, urinary retention, dysuria, hematuria, or rash. - Related Data Allergies/Adverse Reactions: aspirin [Aspirin] Allergy (Severe, Verified 08/11/13 20:06) Liver damage acetaminophen [From Tylenol] Allergy (Intermediate, Verified 08/11/13 20:06) Liver damage codeine [Codeine] Allergy (Intermediate, Verified 08/11/13 20:06) Rash, N&V fluoxetine HCl [From Prozac] Allergy (Verified 08/11/13 20:06) Past Medical History - Social History Smoking Status: Unknown if Ever Smoked Family History: Reviewed & Not Pertinent Patient has suicidal ideation: No Patient has homicidal ideation: No - Past Medical History Cardiac Medical History: Reports: Hx Heart Murmur Pulmonary Medical History: Reports: Hx Asthma, Hx Bronchitis, Hx Pneumonia Neurological Medical History: Reports: Hx Migraine Endocrine Medical History: Reports: Hx Diabetes Mellitus Type 2, Hx Hypothyroidism Renal/ Medical History: Reports: Hx Kidney Stones. Denies: Hx Peritoneal Dialysis GI Medical History: Musculoskeletal Medical History: Reports Hx Arthritis, Reports Hx Musculoskeletal Deformity, Reports Hx Musculoskeletal Trauma Psychiatric Medical History: Reports: Hx Anxiety, Hx Attention Deficit Hyperactivity Disorder, Hx Bipolar Disorder, Hx Depression Infectious Medical History: Past Surgical History: Reports: Hx Appendectomy, Hx Gynecologic Surgery - novasure ablation, Hx Hysterectomy, Hx Oral Surgery, Hx Tubal Ligation. Denies : Hx Pacemaker - Immunizations Immunizations up to date: Yes Hx Diphtheria, Pertussis, Tetanus Vaccination: Yes Review of Systems - Review of Systems -: Yes All other systems reviewed and negative Physical Exam - Vital signs Vitals: Temp Pulse Resp BP Pulse Ox 97.7 F 101 H 18 158/86 H 100 05/18/18 12:42 05/18/18 12:42 05/18/18 12:42 05/18/18 12:42 05/18/18 12:42 - Notes Notes: PHYSICAL EXAMINATION: GENERAL: Well-appearing, well-nourished and in no acute distress. A&Ox4. Answers questions appropriately. Appears easily excitable and manic. HEAD: Atraumatic, normocephalic. Non-tender. EYES: Pupils equal round and reactive to light, extraocular movements intact, sclera anicteric, conjunctiva are normal. No nystagmus. vis beyer intact. ENT: EAC clear b/l. TM's intact b/l without erythema, fluid, or perforation. Nares patent and without discharge. oropharynx clear without exudates. No tonsilar hypertrophy or erythema. Moist mucous membranes. No sinus tenderness. NECK: Normal range of motion, supple without lymphadenopathy. No rigidity/ meningismus. No midline tenderness. LUNGS: Breath sounds clear to auscultation bilaterally and equal. No wheezes rales or rhonchi. HEART: Regular rate and rhythm without murmurs, rubs, gallops. ABDOMEN: Soft, nontender, nondistended abdomen. No guarding, no rebound. Normal bowel sounds present. No CVA tenderness bilaterally. Musculoskeletal: Ext's b/l: FROM to passive/active. Strength 5+/5. No deficits noted. No bony tenderness of extremities. Extremities: No cyanosis, clubbing, or edema b/l. Peripheral pulses 2+. Capillary refill less than 2 seconds. NEUROLOGICAL: GCS 15. Cranial nerves grossly intact. Normal speech, normal gait. Normal sensory, motor exams. Reflexes 2+ b/l. PSYCH: manic SKIN: Warm, Dry, normal turgor, no rashes or lesions noted. Course - Re-evaluation Re-evalutation: 05/18/18 10:21 Patient is an afebrile, well-hydrated, 38-year-old female who is well-known to the emergency department and our psychology team who presents to the ED being manic and having hyperreligiosity. She has no SI/HI. She is nontoxic- appearing and is tolerating p.o. without any difficulties. She has already been evaluated by our psychology team who is initiating IVC and will be searching for placement. Dr. Hinds will not be available until the afternoon so med rec will not be performed right now. IVC protocol ordered. No further labs or imaging warranted at this time. 05/18/18 11:28 Pt noted to be manic and is constantly pacing her room and will not provide a urine. Med rec cannot be performed at this time with Dr. Hinds. Pt is threatening to leave. Staff requesting medicinces to help calm her down at this time. Reviewed with Dr. Jovel. Recommends zyprexa 10mg. 05/18/18 17:43 Labs unremarkable. Pt was given Ativan IM ordered by Dr. Willett to help her calm down as well. Pt accepted for transfer to [facility]. Transfer team has arrived. EMTALA filled out. She has no new concerns or complaints. Vitals acceptable. Pt stable for transport. - Vital Signs Vital signs: Temp Pulse Resp BP Pulse Ox 97.7 F 80 16 130/75 H 100 05/18/18 17:37 05/18/18 17:37 05/18/18 17:37 05/18/18 17:37 05/18/18 17:37 - Laboratory Result Diagrams: 05/18/18 11:55 05/18/18 10:45 Laboratory results interpreted by me: 05/18/18 05/18/18 05/18/18 10:45 11:55 12:10 RDW 14.3 H Glucose 142 H ALT 53 H Urine Protein 30 H Ur Leukocyte Esterase TRACE H Urine Ascorbic Acid 40 H Salicylates < 1.0 L Acetaminophen < 10 L Discharge - Discharge Clinical Impression: Bipolar 1 disorder, manic, moderate Condition: Stable Disposition: PSYCH HOSP/UNIT Referrals: AMANDA GRIFFIN MD [Primary Care Provider] - Follow up as needed
--- NOTE | 2018-05-18 10:46 | PSYCHOLOGICAL NOTE ---
Psych Note - Psych Note Date seen by psych provider: 05/18/18 Time seen by psych provider: 10:20 Psych Note: Reason for Consult: Manic Patient is observed pacing back and forth in her room. When asked what happened she is unable to articulate only taking a breath starting to speak and then stopping again; "I.... Yeah.... Michele...."; Clinician notes patient was heard talking to her mother on her cell phone prior to entering the room however conversation was hyper cheondoism and did not appear to be linear. Patient was asked if she filled her prescription from Thursday she reports " no...I didn't..I thought..." Patient appeared anxious or scared so clinician explained the patient was safe. It was explained that she was currently demonstrating manic behaviors in which patient responded "I am? okay." Clinician explained process of changing over into blue scrubs and giving her attending nurse all of her personal belongings; patient confirms she understood. Patient is alert and orientated to person, place, time and circumstance. Mood manic with blunted affect (clinician notes patient has an over appearance of being either anxious and/or scared). Patient denies current suicidal and homicidal ideation. Patient presents with hyper-religiosity (Patient was found at the local hotel running up and down the [place] naked yelling that Michele loves her). Eye contact was well-maintained. Patient demonstrated being out of breath when talking and losing her train of thought and at times appears to be word searching. Intellectual abilities appear to be within the average range. Attention and concentration are fair. Insight, judgment, impulse control are fair. Diagnosis 296.80 (F31.9) unspecified bipolar and related disorder per history provided by patient's act team 309.81 (F43.10) posttraumatic stress disorder per history provided by patient's act team Impression\\plan: Patient is recommended for IVC. Patient is demonstrating manic behavior with thoughts being hyper-cheondoism. Patient was found at the local hotel running up and down the [place] naked screaming that Michele loves her. Patient currently appears anxious in her scared. Clinician explained patient is demonstrating manic behavior in which patient responded "I am?..ok" patient reports she did not fill the prescriptions previously provided on Thursday but was unable to articulate why. She started to respond with "I didn't..I thought..." patient appeared to start word searching and could not complete her thought. Patient was accepted to [facility]; transportation has been requested. Dr. Hinds was consulted and the care management this patient; attending physicians in agreement with recommendations and disposition.
[2018-05-18 11:20] LABS: ALANINE AMINOTRANSFERASE 53 U/L (9-52); ALBUMIN 4.3 g/dL (3.5-5.0); ALKALINE PHOSPHATASE 83 U/L (38-126); ANION GAP 13 (5-19); ASPARTATE AMINO TRANSFERASE 33 U/L (14-36); BILIRUBIN,DIRECT 0.2 mg/dL (0.0-0.4); BILIRUBIN,TOTAL 0.5 mg/dL (0.2-1.3); BLOOD UREA NITROGEN 10 mg/dL (7-20); CALCIUM 9.3 mg/dL (8.4-10.2); CARBON DIOXIDE 22 mmol/L (22-30); CHLORIDE 105 mmol/L (98-107); GLUCOSE 142 mg/dL (75-110); POTASSIUM 3.6 mmol/L (3.6-5.0); SODIUM 140.2 mmol/L (137-145); TOTAL PROTEIN 7.2 g/dL (6.3-8.2)
[2018-05-18 11:21] LABS: ACETAMINOPHEN < 10 ug/mL (10-30); ALCOHOL < 10 mg/dL (NONE DETECTED); SALICYLATE < 1.0 mg/dL (2.0-20.0)
[2018-05-18] MEDS ORDERED: OLANZAPINE 5 MG TAB.RAPDIS PO ONE (11:39)
[2018-05-18 12:03] LABS: ABSOLUTE LYMPHOCYTES (AUTO) 1.8 10^3/uL (0.5-4.7); ABSOLUTE MONOCYTES (AUTO) 0.5 10^3/uL (0.1-1.4); ABSOLUTE NEUT (AUTO) 8.2 10^3/uL (1.7-8.2); BASOPHILS % (AUTO) 0.4 % (0-2); EOSINOPHILS % (AUTO) 0.1 % (0-6); HEMATOCRIT 36.3 % (36.0-47.0); HEMOGLOBIN 12.3 g/dL (12.0-15.5); LYMPHOCYTES % (AUTO) 17.3 % (13-45); MEAN CORPUSCULAR HEMOGLOBIN 28.8 pg (27.0-33.4); MEAN CORPUSCULAR HGB CONC 33.9 g/dL (32.0-36.0); MEAN CORPUSCULAR VOLUME 85 fl (80-97); MONOCYTES % (AUTO) 4.5 % (3-13); PLATELET COUNT 287 10^3/uL (150-450); RED BLOOD COUNT 4.27 10^6/uL (3.72-5.28); RED CELL DISTRIBUTION WIDTH 14.3 % (11.5-14.0); SEGMENTED NEUTROPHILS % (AUTO) 77.7 % (42-78); TOTAL CELLS COUNTED % (AUTO) 100 %; WHITE BLOOD COUNT 10.5 10^3/uL (4.0-10.5)
[2018-05-18 12:45] LABS: APPEARANCE,URINE CLOUDY; BILIRUBIN,URINE NEGATIVE (NEGATIVE); COLOR,URINE YELLOW; GLUCOSE, URINE NEGATIVE (NEGATIVE); KETONES,URINE NEGATIVE (NEGATIVE); LEUKOCYTE ESTERASE,URINE TRACE (NEGATIVE); NITRITE,URINE NEGATIVE (NEGATIVE); PROTEIN,URINE 30 mg/dL (NEGATIVE); URINE SPECIFIC GRAVITY 1.021; UROBILINOGEN,URINE NEGATIVE mg/dL (<2.0)
[2018-05-18 13:11] LABS: URINE AMPHETAMINES SCREEN NEGATIVE; URINE BARBITURATES SCREEN NEGATIVE; URINE BENZODIAZEPINES SCREEN NEGATIVE; URINE MARIJUANA (THC) SCREEN NEGATIVE; URINE METHADONE SCREEN NEGATIVE; URINE PHENCYCLIDINE SCREEN NEGATIVE
[2018-05-18 13:19] LABS: URINE COCAINE SCREEN NEGATIVE
[2018-05-18] MEDS ORDERED: LORAZEPAM INJ 2 MG/1 ML VIAL IM ONE (13:43)
[2018-05-18 17:38] VITALS: BP 130/75
--- NOTE | 2018-05-19 07:13 | EKG REPORT ---
SEVERITY:- ABNORMAL ECG - SINUS TACHYCARDIA : Confirmed by: Jolie Echols 19-May-2018 07:12:17
== END 2018-05-18 17:40 ==
LOC: ER 10:01
DX: F31.9 Bipolar disorder, unspecified (principal); J45.909 Unspecified asthma, uncomplicated; E11.9 Type 2 diabetes mellitus without complications; Z88.6 Allergy status to analgesic agent; Z88.5 Allergy status to narcotic agent; Z88.8 Allergy status to other drugs, medicaments and biological substances
CPT/HCPCS: 93005; 99285; 96372; 36415; 80307 ×4; 85025; 81025; 80053; 81001; 93010; J3490; J2060